=== PATIENT | female | born 1975 | race Caucasian/White ===

== ENCOUNTER 2017-08-06 22:07 | Emergency (ER) | payer SELFPAY ==
[~2017-08-06] VITALS: Ht 165.1 cm; Wt 72.0 kg
[2017-08-06 22:12] VITALS: BP 164/101; PULSE 95; RESP 16; TEMP 98.4; O2SAT 97
[2017-08-06] MEDS ORDERED: TETANUS/DIPHTHERIA TOXOID ADULT 0.5 ML VIAL IM ONE (22:45)
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
[2017-08-06 23:34] VITALS: BP 138/87; PULSE 90; RESP 18; O2SAT 98
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
[2017-08-07] MEDS ORDERED: ACETAMINOPHEN 325 MG TAB PO ONE
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
[2017-08-07] MEDS ORDERED: KETOROLAC TROMETHAMINE 60 MG/2 ML (IM) VIAL IM ONE (00:45)
== END 2017-08-07 00:55 | disposition home or self-care (01) ==
LOC: NEPE 22:07
DX: S91.302A Unspecified open wound, left foot, initial encounter (principal); S81.801A Unspecified open wound, right lower leg, initial encounter; R07.89 Other chest pain; W34.00XA Accidental discharge from unspecified firearms or gun, initial encounter
CPT/HCPCS: 71046; 73552; 73590; 73630; 96372; 99283; J1885